=== PATIENT | male | born 1940 | race Caucasian/White ===

== ENCOUNTER 2017-10-02 06:11 | Emergency (ER) | payer MEDICARE, OTHER ==
[2017-10-02] MEDS ORDERED: HYDROcodone/Acetaminophen 10/325 mg Tablet ONE ×2 (07:05→12:04)
--- NOTE | 2017-10-02 09:43 | CT ---
CT OF HEAD NONCONTRAST: Date: 10/02/17 INDICATION: Trauma, head injury, pain. FINDINGS: There is no intracranial hemorrhage, mass effect, or midline shift. Ventricular system is age-appropr iate in size. There is mild chronic microvascular ischemic disease of the cerebral white matter. Mini mal mucosal thickening is seen within paranasal sinuses. IMPRESSION: 1. No acute intracranial hemorrhage or mass effect. 2. Age-related intracranial findings are present. POS: [facility]
--- NOTE | 2017-10-02 11:54 | CT ---
CERVICAL SPINE CT WITHOUT CONTRAST: Date: 10/02/17 HISTORY: Fall. Trauma. COMPARISON: 10/02/17 at 0037 hours from [facility]. FINDINGS/IMPRESSION: Redemonstration of a fracture involving the left spinous process at C4 with extension into the news clerk ior left lamina. No additional fracture is seen. There has been no changed when compared to the previ ous CT. Nonspecific pleural based calcification right hemithorax. Correlate for asbestos exposure. POS: [facility]
--- NOTE | 2017-10-03 06:00 | HP ---
This is a 30-minute initial hospital visit note in which 30 minutes were spent in review of the imagi ng record, evaluation, examination of the patient, and formulation of plan. Greater than 50% of the time was spent in counseling. CHIEF COMPLAINT: C4 spinous process fracture. HISTORY OF PRESENT ILLNESS: Mr. Smith is a very pleasant 77-year-old gentleman who sustained a fall with an axial load injury. He is on antiplatelet therapy. He was transferred here, given concern of a cervical spine fracture. Review of his craniocervical imaging demonstrates no acute abnormality w ith the exception of a C4 spinous process and somewhat eccentric to the left with extension into the spinolaminar region fracture. There is no other acute abnormality. He has been neurologically intac t and he is in a well-fitting cervical collar in the emergency room. PHYSICAL EXAMINATION: He is alert, appropriate, has full strength in his upper and lower extremity m yotomes. He is neurologically intact. He is limited in his left shoulder motion as he likely sustai radha a rotator cuff injury with this. IMPRESSION AND PLAN: What I have let the patient and his family know is I would like him to stay in a collar. We will arrange followup in the clinic with upright AP and lateral cervical spine x-rays i n 6 weeks. Should his imaging and clinical presentation be satisfactory in 6 weeks. I think we can begin tapering him out of his collar at that point. I have let him know I would like him to stay in his collar at all times with the exception of perhaps when he is bathing or showering. He may take i t off as long as he maintains cervical spine neutral position. I have let him know that I would like him not to lift more than 10 pounds for the next 6 weeks. We will arrange followup in my clinic. I have also counseled him on beneficial exercises to help minimize rotator cuff problems associated wi th his shoulder. I do not think that is left shoulder pain is due to radiculopathy at this point. _ ____ C4 fracture.
== END 2017-10-02 12:15 | disposition home or self-care (01) ==
LOC: ERS 06:11
DX: S12.300A Unspecified displaced fracture of fourth cervical vertebra, initial encounter for closed fracture (principal); I25.10 Atherosclerotic heart disease of native coronary artery without angina pectoris; I11.0 Hypertensive heart disease with heart failure; I50.9 Heart failure, unspecified; E78.5 Hyperlipidemia, unspecified; Z79.82 Long term (current) use of aspirin; Z79.899 Other long term (current) drug therapy; W18.30XA Fall on same level, unspecified, initial encounter
CPT/HCPCS: 36416; 70450; 72125

== ENCOUNTER 2017-10-31 10:28 | Outpatient (CLI) | payer MEDICARE ==
--- NOTE | 2017-10-31 12:16 | RAD ---
FOUR VIEWS CERVICAL SPINE: Indication: History of fall with a C4 vertebral fracture. Comparison: CT of the cervical spine, 10-02-17. FINDINGS: Spinal alignment is unchanged. Bulky anterior projecting osteophytes spanning C3 through C6 appears s imilar. Nondisplaced spinus process fracture involving C4 is not as well delineated on the current ex amination. Diffuse osteopenia is similar. Cervicothoracic junction is not well seen on the swimmer's lateral projection. IMPRESSION: 1. Patient's C4 spinous process fracture is not well seen. 2. Moderate multiple spondylosis of the cervical spine. 3. Nonvisualization of the cervicothoracic junction. POS: [facility]
== END 2017-10-31 10:29 | disposition home or self-care (01) ==
LOC: TBSIIMAG 10:28
PROVIDERS: ATTEND Surgery
DX: S12.9XXA Fracture of neck, unspecified, initial encounter (principal); M47.892 Other spondylosis, cervical region
CPT/HCPCS: 72040

== ENCOUNTER 2018-09-11 12:20 | Outpatient (CLI) | payer MEDICARE ==
--- NOTE | 2018-09-11 15:51 | RAD ---
THREE VIEWS LUMBAR SPINE: History: Back pain radiating down both lower extremities x 3-4 months. Comparison: None. FINDINGS: Incidental gastric lap band is noted and cannot be assessed. There are five lumbar type vertebral bodies. Extensive osteophyte formation of the lumbar spine. In t he neutral upright position, there is straightening of the normal lumbar lordosis. Vertebral body hei ght is maintained. There is no fracture. Moderate loss of disc space height at L3-4. In the neutral position, 5.4 mm of retrolisthesis of L4 upon L5, on flexion 3.0 mm, upon extension 4. 4 mm. No additional areas of spondylolisthesis. There are degenerative changes in the posterior elements of L4-5 and L5-S1. IMPRESSION: Degenerative changes of spondylolisthesis as above. POS: [facility]
--- NOTE | 2018-09-11 18:26 | MRI ---
MRI CERVICAL SPINE WITHOUT CONTRAST: Date: 09/11/18 HISTORY: Balance problems. Frequent falls. Neck pain. COMPARISON: None. TECHNIQUE: Cervical spine MRI is performed without intravenous Gadolinium administration. Multisequential, multi planar imaging is performed. FINDINGS: Appropriate T1 marrow signal intensity of the cervical vertebra. Cervical spine vertebral body height is maintained. No fracture. No significant STIR hyperintensity to suggest vertebral body edema or li gamentous injury. C2-C3: No significant disc osteophyte complex. No significant central canal stenosis. Neural foramin a are patent. C3-C4: Small central disc osteophyte complex superimposed upon a broad based disc bulge. There is de formity of the cervical spine with at least moderate central canal stenosis. No significant abnormali ty of the cord. Moderate bilateral foraminal narrowing. C4-C5: Central/left subarticular disc protrusion. There is deformity of the left hemicord with presu med mass effect upon the traversing left C6 nerve root. Overall mild to moderate central canal stenos is in the left aspect of the central spinal canal. Moderate right and moderate to severe left foramin al narrowing. C5-C6: There is a central disc bulge with a small right paracentral component. There is deformity of the thecal sac and mass effect upon the cervical cord. Moderate central canal stenosis. Moderate john ateral foraminal narrowing. C6-C7: No significant central canal stenosis. Neural foramina are patent. C7-T1: No significant central canal stenosis. Foramina are patent. IMPRESSION: Degenerative changes of the cervical spine at C3-C4, C4-C5, and C5-C7 as described above. POS: [facility]
== END 2018-09-11 12:21 | disposition home or self-care (01) ==
LOC: SCSMRI 12:20
PROVIDERS: ATTEND Surgery
DX: M51.16 Intervertebral disc disorders with radiculopathy, lumbar region (principal); R26.89 Other abnormalities of gait and mobility; R29.6 Repeated falls; M47.26 Other spondylosis with radiculopathy, lumbar region; M43.16 Spondylolisthesis, lumbar region; M47.812 Spondylosis without myelopathy or radiculopathy, cervical region
CPT/HCPCS: 72120; 72141

== ENCOUNTER 2018-09-22 12:52 | Outpatient (CLI) | payer MEDICARE | END 2018-09-22 12:53 | disposition home or self-care (01) | LOC: TBSIIMAG 12:52 | PROVIDERS: ATTEND Surgery | DX: M51.16 Intervertebral disc disorders with radiculopathy, lumbar region (principal); R26.89 Other abnormalities of gait and mobility; R29.6 Repeated falls; M47.26 Other spondylosis with radiculopathy, lumbar region; M47.27 Other spondylosis with radiculopathy, lumbosacral region; M43.16 Spondylolisthesis, lumbar region; M48.061 Spinal stenosis, lumbar region without neurogenic claudication; M47.812 Spondylosis without myelopathy or radiculopathy, cervical region; Z98.890 Other specified postprocedural states | CPT/HCPCS: 72148 ==

== ENCOUNTER 2018-10-10 11:45 | Day surgery (SDC) | payer MEDICARE ==
[2018-10-09 16:04] VITALS: BMI 37.5
== END 2018-10-10 13:00 | disposition home or self-care (01) ==
LOC: SDC/OP 11:45
PROVIDERS: ATTEND Surgery
DX: M54.5 Low back pain (principal); M25.552 Pain in left hip; M25.551 Pain in right hip; M79.18 Myalgia, other site; M79.652 Pain in left thigh; M79.651 Pain in right thigh; R26.89 Other abnormalities of gait and mobility; Z91.81 History of falling; Z79.02 Long term (current) use of antithrombotics/antiplatelets; Z79.4 Long term (current) use of insulin; Z79.82 Long term (current) use of aspirin; Z79.899 Other long term (current) drug therapy; Z91.041 Radiographic dye allergy status; Z95.5 Presence of coronary angioplasty implant and graft; Z98.890 Other specified postprocedural states

== ENCOUNTER 2018-10-13 11:59 | Day surgery (SDC) | payer MEDICARE ==
[2018-10-12 14:24] VITALS: BMI 37.8
[2018-10-13] MEDS ORDERED: Fentanyl 100 MCG/2 ML VIAL ONE (14:51)
[2018-10-13] MEDS ORDERED: Ketorolac Tromethamine 30 MG/ML VIAL ONE (15:42)
[2018-10-13] MEDS ORDERED: PROPOFOL 200 MG/20 ML VIAL ONE (15:42)
[2018-10-13] MEDS ORDERED: Ondansetron PF 4 MG/2 ML Vial ONE (15:42)
[2018-10-13] MEDS ORDERED: Lidocaine 1% PF 5 ML VIAL ONE (15:42)
--- NOTE | 2018-10-13 16:29 | MRI ---
MRI THORACIC SPINE WITHOUT CONTRAST: 10/13/18 HISTORY: Recent fall. Chronic low back pain. Gait abnormality. COMPARISON: None. TECHNIQUE: Thoracic spine MRI is performed without intravenous gadolinium administration. Multisequential, multi planar imaging is performed. FINDINGS: Appropriate T1 marrow signal intensity of the thoracic vertebrae. Thoracic spine vertebral body heigh t is maintained. There is no fracture. The visualized mediastinum is unremarkable. Atelectatic changes in the lung parenchyma is suspected. Visualized solid organs are unremarkable. The thoracic cord has an overall normal size and signal intensity. No evidence of cord malacia. No ev idence of cord expansion. There is nonspecific T2 and STIR hyperintensity involving the T8-T9 disc space. There appears to be t ype II Modic changes on the superior end plate of T9. T1-T2 through T5-T6, no significant central canal stenosis. T6-T7, small central disc bulge deforms the thecal sac and midline cord. No cord signal abnormality. T7-T8, minimal right paracentral disc protrusion. No significant central canal stenosis. T8-T9, there is a central disc osteophyte complex that abuts the thecal sac. There is deformity of th e midline thecal sac and cord. No signal abnormality in the cord. Mild central canal stenosis. T9-T10, no significant central canal stenosis. T10-T11, small central disc protrusion without significant central canal stenosis. T11-T12, no significant central canal stenosis. Throughout the thoracic spine, neural foramina appear to be patent. IMPRESSION: Mild degenerative changes without significant central canal stenosis or foraminal narrowing. POS: [facility]
== END 2018-10-13 18:08 | disposition home or self-care (01) ==
LOC: MRI 11:59
PROVIDERS: ATTEND Surgery
DX: G89.29 Other chronic pain (principal); M54.5 Low back pain; R26.89 Other abnormalities of gait and mobility; M51.24 Other intervertebral disc displacement, thoracic region; M48.04 Spinal stenosis, thoracic region; Z79.02 Long term (current) use of antithrombotics/antiplatelets; Z79.4 Long term (current) use of insulin; Z79.82 Long term (current) use of aspirin; Z79.899 Other long term (current) drug therapy; Z91.041 Radiographic dye allergy status; Z95.1 Presence of aortocoronary bypass graft; Z95.5 Presence of coronary angioplasty implant and graft; Z98.890 Other specified postprocedural states
CPT/HCPCS: 72146; J1885; J2001; J2405; J2704; J3010

== ENCOUNTER 2018-12-14 00:51 | Outpatient (CLI) | payer MEDICARE ==
[2018-12-14 13:45] LABS: Hemoglobin 11.6 g/dL (14.0-18.0); Mean Corpuscular HGB CONC 33.3 g/dL (32.0-36.0); Mean Corpuscular Hemoglobin 32.4 pg (27.0-31.0); Mean Corpuscular Volume 97.2 fL (78.0-98.0); Mean Platelet Volume 6.9 fL (7.4-10.4); Platelet Count 163 thou/uL (130-400); RBC Distribution Width 13.7 % (11.5-14.5); Red Blood Cell (RBC) Count 3.59 mill/uL (4.70-6.10); White Blood Cell (WBC) Count 10.5 thou/uL (4.8-10.8)
[2018-12-14 13:54] LABS: PTT 31.7 SEC (22.9-36.1); Prothrombin Time 13.4 SEC (12.0-14.7)
[2018-12-14 14:04] LABS: Anion Gap 16 mmol/L (10-20); BUN (Urea Nitrogen) 33 mg/dL (8.4-25.7); Calc. Creatinine Clearance 0 mL/min (70-130); Calcium 9.9 mg/dL (7.8-10.44); Carbon Dioxide 25 mmol/L (23-31); Chloride 102 mmol/L (98-107); Estimated GFR-MDRD 46; Glucose 158 mg/dL (83-110); Potassium 4.2 mmol/L (3.5-5.1); Sodium 139 mmol/L (136-145)
--- NOTE | 2018-12-15 07:09 | EKG ---
Test Reason : Blood Pressure : / mmHG Vent. Rate : 077 BPM Atrial Rate : 077 BPM P-R Int : 186 ms QRS Dur : 138 ms QT Int : 426 ms P-R-T Axes : 033 -67 040 degrees QTc Int : 482 ms Normal sinus rhythm with sinus arrhythmia Right bundle branch block Left anterior fascicular block Bifascicular block Left ventricular hypertrophy with QRS widening Abnormal ECG When compared with ECG of 13-JAN-2010 07:39, Premature atrial complexes are no longer Present Right bundle branch block has replaced Incomplete right bundle branch block Confirmed by CINDA DE LEON ([id number]) on 12/15/2018 7:09:36 AM Referred By: ROXI Confirmed By:CINDA DE LEON
== END 2018-12-14 00:52 | disposition home or self-care (01) ==
LOC: LABBT 00:51
PROVIDERS: ATTEND Surgery
DX: Z01.818 Encounter for other preprocedural examination (principal); M48.02 Spinal stenosis, cervical region; M54.12 Radiculopathy, cervical region
CPT/HCPCS: 80048; 85027; 85610; 85730; 93005; 93010

== ENCOUNTER 2018-12-21 09:59 | Observation (INO) | payer MEDICARE ==
[2018-12-14 12:39] VITALS: BMI 37.5
[2018-12-21] MEDS ORDERED: Sodium Chloride 0.9% 10 ML ONE (10:02)
[2018-12-21] MEDS ORDERED: Thrombin 5000 UNITS/5 ML VIAL ONE (10:02)
[2018-12-21] MEDS ORDERED: Fentanyl 100 MCG/2 ML VIAL ONE ×3 (11:00→14:48)
[2018-12-21] MEDS ORDERED: PHENYLEPHRINE-NS 100 MCG/ML 10 ML SYRINGE ONE ×2 (13:11→13:48)
[2018-12-21] MEDS ORDERED: Lidocaine 1% PF 5 ML VIAL ONE (13:48)
[2018-12-21] MEDS ORDERED: Rocuronium Bromide 10 MG/ML (10ML VIAL) ONE (13:48)
[2018-12-21] MEDS ORDERED: PROPOFOL 200 MG/20 ML VIAL ONE (13:48)
[2018-12-21] MEDS ORDERED: Ondansetron PF 4 MG/2 ML Vial ONE (13:48)
[2018-12-21] MEDS ORDERED: Promethazine HCl 25 MG/ML VIAL IM PRN (14:40)
[2018-12-21] MEDS ORDERED: Milk Of Magnesia 30 ML UDCUP PO PRN (14:40)
[2018-12-21] MEDS ORDERED: Acetaminophen/Codeine 30-300mg Tablet PO PRN (14:40)
[2018-12-21] MEDS ORDERED: Mag-Al 1200 mg/1200 mg/30 ML UDCUP PO PRN (14:40)
[2018-12-21] MEDS ORDERED: traMADol HCl 50 MG TAB PO PRN (14:40)
[2018-12-21] MEDS ORDERED: Morphine 4 MG/ML VIAL SLOW IVP PRN (14:40)
[2018-12-21] MEDS ORDERED: Bisacodyl 10 MG SUPP PR PRN (14:40)
[2018-12-21] MEDS ORDERED: Acetaminophen 325 MG TAB PO PRN (14:40)
[2018-12-21] MEDS ORDERED: Fleet Enema 133 ML BOT PR PRN (14:40)
[2018-12-21] MEDS ORDERED: Nitroglycerin 0.4 MG TAB (25 Tab Bottle) SL PRN (14:43)
[2018-12-21] MEDS ORDERED: HYDROmorphone 2 MG/ML VIAL ONE (14:49)
[2018-12-21] MEDS ORDERED: INSULIN ASPART 15 UNIT SQ SCH (15:00)
[2018-12-21] MEDS ORDERED: Promethazine HCl 25 MG/ML VIAL IM/IV PRN (15:51)
[2018-12-21] MEDS ORDERED: HYDROmorphone 2 MG/ML VIAL SLOW IVP PRN (15:51)
[2018-12-21] MEDS ORDERED: Non-Formulary Medication 1 EACH PO PRN (15:51)
[2018-12-21] MEDS ORDERED: Ondansetron HCl/PF 4 MG/2 ML Vial IVP PRN (15:51)
[2018-12-21] MEDS: Gabapentin 300 MG CAP PO SCH ×2 (16:46→20:55)
[2018-12-21] MEDS: HYDROcodone/Acetaminophen 7.5/325 mg Tablet PO PRN ×2 (17:21→21:07)
[2018-12-21] MEDS: Sodium Chloride 0.9% 1,000 ML IV SCH (17:23)
[2018-12-21] MEDS: tiZANidine HCl 4 MG TAB PO PRN (18:31)
[2018-12-21] MEDS ORDERED: Zolpidem Tartrate 5 MG TAB PO PRN (20:20)
[2018-12-21] MEDS ORDERED: Dextrose 50% Abboject 50 ML SYRINGE SLOW IVP PRN (20:21)
[2018-12-21] MEDS ORDERED: Dextrose 5% in Water 1,000 ML IV PRN (20:21)
[2018-12-21] MEDS: CEFAZOLIN 2 GM in Premix Bag 1 BAG IVPB SCH (20:54)
[2018-12-21] MEDS: Dutasteride 0.5 MG CAP PO SCH (20:55)
[2018-12-21] MEDS: Atorvastatin Calcium 10 MG TAB PO SCH (20:55)
[2018-12-21] MEDS ORDERED: INSULIN GLARGINE HUM REC ANLOG SQ SCH (21:00)
[2018-12-21] MEDS ORDERED: [UNRECOGNIZED DRUG - OTHER] SQ SCH (21:00)
[2018-12-21] MEDS: HumaLOG 300 UNITS/3 ML VIAL SC SCH (21:32)
[2018-12-21] MEDS: Insulin Glargine 22 UNITS in Pre-Filled Syringe 1 EACH SC SCH (21:57)
[2018-12-22] MEDS: tiZANidine HCl 4 MG TAB PO PRN ×3 (01:28→18:47)
--- NOTE | 2018-12-22 02:49 | CON ---
DATE OF CONSULTATION: PRIMARY CARE PHYSICIAN: Judy Rousseau at [facility]. PRIMARY TEAM: Neurosurgery, Dr. Romano. REASON FOR CONSULTATION: Medical management. HISTORY OF PRESENT ILLNESS: This is an 78-year-old white male, admitted for scheduled cervical spine anterior cervical disk fusion. The patient had procedure done earlier today. He has been doing well postoperatively. He does have some pain in the muscles around his neck. PAST MEDICAL HISTORY: 1. Diabetes mellitus type 2, insulin dependent, complicated by stage 3 chronic kidney disease and diabetic retinopathy. 2. Coronary artery disease with previous CABG and further stenting. 3. Diastolic congestive heart failure. 4. Dyslipidemia. 5. Arthritis and rotator cuff injury of the shoulder. 6. Morbid obesity. 7. Gastroesophageal reflux disease. 8. Chronic low back pain. 9. Mild aortic stenosis. 10. Remote nephrolithiasis. 11. Hypertension. PAST SURGICAL HISTORY: 1. Coronary artery bypass grafting in 2006. 2. Cataract surgery in 2005. 3. Tonsillectomy in 1954. 4. Vasectomy in 1962. 5. Patellar fracture surgery in 1957. 6. Hemorrhoid surgery in 1975. 7. Ureteroscopy multiple times. 8. Lumbar spinal surgery in 1998. 9. Transurethral resection of the prostate in 1995. 10. Bilateral foot surgery in 2011. 11. Laparoscopic gastric banding in 2009. 12. Thyroidectomy in 2009. 13. Right total knee replaced in 2005. SOCIAL HISTORY: The patient has no significant smoking history. No alcohol or illicit drug use. He lives at home with his who is present at the bedside and she would be his medical decisionmaker, name Yue Smith. FAMILY HISTORY: Cancer in his brother, father and sister. ALLERGIES: 1. JAME INHIBITORS. 2. ADHESIVE TAPE. 3. IODINATED CONTRAST. 4. SILDENAFIL. CURRENT MEDICATIONS: 1. Aspirin 81 mg daily. 2. Plavix 75 mg daily. 3. Colace as needed. 4. Hydrocodone/acetaminophen 5/325 mg as needed for pain. 5. Resveratrol 100 mg daily. 6. Allopurinol 300 mg daily. 7. Dutasteride 0.5 mg at night. 8. Furosemide 160 mg each morning. 9. Gabapentin 300 mg 3 times a day. 10. Hydrochlorothiazide 12.5 mg each morning. 11. NovoLog 15 units before every meal. 12. Basaglar KwikPen 20 units q.a.m. and at bedtime. 13. Levothyroxine 200 mcg each morning. 14. Losartan 100 mg each morning. 15. Metoprolol-XL 50 mg at night. 16. Nitroglycerin as needed. 17. Omeprazole 40 mg twice a day. 18. Pravastatin 40 mg at night. REVIEW OF SYSTEMS: CONSTITUTIONAL: No fevers, no chills. EYES: No double vision or blurred vision. ENT: No congestion, drainage, or sore throat. The patient does have very dry mouth and throat and he also has had a problem for years ever since previous surgery that when he swallows if he is not careful, things will shoot up into his nose. This is always worse right after surgery as right now, but he has been able to swallow some liquids and ice chips just very carefully. CARDIOVASCULAR: No chest pain. No palpitations or racing heart. PULMONARY: No coughing, wheezing, or shortness of breath. GASTROINTESTINAL: No abdominal pain. No nausea or vomiting. No diarrhea or constipation. GENITOURINARY: No dysuria or hematuria. MUSCULOSKELETAL: He has chronic muscle aches and joint pains, but nothing that is bothering him right now, just the pain in his neck from the surgery. SKIN: No rashes or other lesions noted. NEUROLOGIC: No numbness, tingling, or focal weakness. LABORATORY DATA: Preoperative labs show a white blood cell count of 10.5, hemoglobin 11.6, hematocrit 34.9, and platelet count 163. Coagulation profile normal. Basic metabolic panel which is notable for a BUN of 33 and creatinine of 1.54. His glucose was 231 and then 195 during the day today. Last insulin was 2/3 the dose of his long-acting insulin last night. ASSESSMENT: 1. Cervical spine disease, status post diskectomy and fusion. The patient is doing well postoperatively. 2. Insulin-dependent diabetes mellitus. We will resume the patient's home insulin and put him on a moderate sliding scale before every meal and at bedtime blood sugars. 3. Coronary artery disease. Holding the patient's aspirin and Plavix for now. We will hold those until Neurosurgery is okay with restarting likely in 1-2 weeks and continue his other home medications. 4. Hypertension. We will resume the patient's home blood pressure medications. 5. Chronic renal failure, stage 3. We will monitor creatinine closely. 6. Gastrointestinal prophylaxis and history of gastroesophageal reflux disease. We will continue the patient's PPI in the hospital. 7. Deep venous thrombosis prophylaxis. We will put the patient on SCDs while in bed. 8. Hypothyroidism. We will resume the patient's levothyroxine. 9. Code status, the patient is a full code. Job ID: [id number] MTDD
[2018-12-22] MEDS: CEFAZOLIN 2 GM in Premix Bag 1 BAG IVPB SCH ×3 (03:20→20:57)
[2018-12-22] MEDS: Sodium Chloride 0.9% 1,000 ML IV SCH ×3 (04:43→21:03)
[2018-12-22] MEDS: Levothyroxine Sodium 100 MCG TAB PO SCH (05:35)
[2018-12-22] MEDS: HumaLOG 300 UNITS/3 ML VIAL SC SCH ×3 (07:29→13:13)
[2018-12-22] MEDS: Losartan 25 MG TAB PO SCH (09:29)
[2018-12-22] MEDS: Hydrochlorothiazide 25 MG TAB PO SCH (09:29)
[2018-12-22] MEDS: Gabapentin 300 MG CAP PO SCH ×3 (09:30→20:58)
[2018-12-22] MEDS: Allopurinol 300 MG TAB PO SCH (09:30)
[2018-12-22] MEDS: Furosemide 80 MG TAB PO SCH (09:31)
[2018-12-22] MEDS: HYDROcodone/Acetaminophen 7.5/325 mg Tablet PO PRN ×2 (09:32→15:58)
--- NOTE | 2018-12-22 09:53 | OP ---
DATE OF PROCEDURE: 12/21/2018 METERS SUPERINTENDENT: Durga Villalobos PA-C PREPROCEDURE DIAGNOSES: Cervical myelopathy with neck and arm pain with severe cervical stenosis. POSTPROCEDURE DIAGNOSES: Cervical myelopathy with neck and arm pain with severe cervical stenosis. PROCEDURES PERFORMED: 1. Anterior C4-C5 and C5-C6 diskectomies with decompression of spinal cord in C5-C6 nerve roots. 2. Placement of interbody spacer C4-C5 and C5-C6 for arthrodesis packed with graft C4-C5 and C5-C6. 3. Use of operative microscope for microdissection. 4. Anterior cervical plate and screw fixation, C4, C5, C6. DESCRIPTION OF PROCEDURE: After informed consent was obtained from the patient, the patient was brought to the OR. Proper patient, pause, and identification were carried out. Right anterior oblique james was drawn out and this region was sterilely cleansed, prepared, and draped. Proper patient, pause, and identification were carried out. The wound was then opened with a combination of sharp, monopolar, and blunt dissection, and proceeding lateral to the larynx, pharynx, and tracheoesophageal bundle and medial to the right carotid sheath. We identified the prevertebral layer of deep cervical fascia and longus colli muscles. These were swept laterally. He had significant osteophyte bridging across his bones obscuring the disk space and localization was somewhat difficult but we were able to identify the appropriate segments. Distraction then occurred and the microscope was brought in. Diskectomy was performed with excellent decompression of the C4-C5 segment in particular the C4-C5 portion of the cord and C5 nerve roots. We then placed an interbody spacer packed with graft and distraction was released. We did the same procedure at C5-C6 with diskectomy, decompression of spinal cord, and C6 nerve roots in particular the right C6 nerve roots, which were quite compressed and we had excellent decompression. Copious irrigation occurred throughout as did maximizing hemostasis. Then removed the microscope. Anterior cervical plate and screw fixation from C4-C6 then occurred with final tightening and the wound was copiously irrigated and closed in anatomic layers over drain. Job ID: [id number]
--- NOTE | 2018-12-22 15:08 | PRG ---
DATE OF SERVICE: 12/22/2018 POSTOPERATIVE NOTE: Mr. Smith is postoperative day #1, having undergone ACDF. DESIREE drain put out 25 mL since surgery. He has had some sore throat, but has been able to get out of bed to a commode. He states he has posterior neck pain and continued right shoulder and lateral arm pain. Now states he believes that this is improved postoperatively. He is also scheduled for rotator cuff repair on the right in March. Otherwise, the patient would benefit from another overnight stay for continued pain control and increase mobilization. We have consulted inpatient rehab as well as therapies to see if the patient would need rehab versus home health. Otherwise, we will check back on him in the morning. We will continue Ancef. He will remain with the DESIREE drain. Job ID: [id number]
[2018-12-22] MEDS ORDERED: Insulin Regular 300 UNITS/3 ML VIAL SC PRN (16:25)
[2018-12-22] MEDS: Insulin Glargine 22 UNITS in Pre-Filled Syringe 1 EACH SC SCH ×2 (16:33→21:45)
[2018-12-22] MEDS: Atorvastatin Calcium 10 MG TAB PO SCH (20:58)
[2018-12-22] MEDS: Dutasteride 0.5 MG CAP PO SCH (20:58)
[2018-12-23] MEDS: tiZANidine HCl 4 MG TAB PO PRN ×3 (01:29→20:29)
[2018-12-23] MEDS: HYDROcodone/Acetaminophen 7.5/325 mg Tablet PO PRN ×4 (01:29→18:42)
[2018-12-23] MEDS: CEFAZOLIN 2 GM in Premix Bag 1 BAG IVPB SCH (04:40)
[2018-12-23] MEDS: Levothyroxine Sodium 100 MCG TAB PO SCH (05:16)
[2018-12-23] MEDS: Losartan 25 MG TAB PO SCH (10:08)
[2018-12-23] MEDS: Hydrochlorothiazide 25 MG TAB PO SCH (10:09)
[2018-12-23] MEDS: Furosemide 80 MG TAB PO SCH (10:09)
[2018-12-23] MEDS: Insulin Glargine 22 UNITS in Pre-Filled Syringe 1 EACH SC SCH ×2 (10:10→20:28)
[2018-12-23] MEDS: Allopurinol 300 MG TAB PO SCH (10:10)
[2018-12-23] MEDS: Gabapentin 300 MG CAP PO SCH ×3 (10:10→20:29)
--- NOTE | 2018-12-23 11:50 | PRG ---
DATE OF SERVICE: 12/23/2018 Mr. Smith is postoperative day 2 from C4-C6 ACDF. His drain output has been 20 mL over the last 24 hours. We will remove his drain. He has mild dysphagia, not surprising given the size of his neck and his age. He does have right upper extremity edema and he may have an infiltration of his right peripheral IV. We will get an ultrasound of the right arm. He does not yet know if his hand coordination is improved, but he does have improvement in his right upper extremity pain that he had before surgery. His wound is healing well. We will work on mobilization today. Anticipate dismissal tomorrow. Job ID: [id number]
[2018-12-23] MEDS: Insulin Regular 300 UNITS/3 ML VIAL SC PRN ×2 (13:00→17:21)
--- NOTE | 2018-12-23 14:23 | ULT ---
VENOUS DUPLEX SONOGRAM RIGHT UPPER EXTREMITY: Date: 12/23/18 HISTORY: Right arm pain and edema. Neck brace in place. FINDINGS: Internal jugular vein and upper portion of the subclavian vein is difficult to visualize due to neck brace. The brachial, axillary, cephalic, and basilic veins show good color and spectral Doppler flow and compression. IMPRESSION: No sonographic evidence of deep venous thrombosis within the right upper extremity. POS: [facility]
--- NOTE | 2018-12-23 19:52 | PDOC.PN ---
- Subjective Encounter Start Date: 12/23/18 Encounter Start Time: 12:30 Patient seen and examined for med mngt. Pain controlled. No CP/SOB. No new complaints. No overnight events - Objective MAR Reviewed: Yes Vital Signs & Weight: Vital Signs (12 hours) Temp Pulse Resp BP Pulse Ox 12/23/18 15:20 98.3 F 73 16 107/64 93 L 12/23/18 11:45 98.5 F 83 14 123/68 95 12/23/18 08:00 98.3 F 82 12 147/70 H 93 L Weight Weight 285 lb I&O: 12/22/18 12/23/18 12/24/18 06:59 06:59 06:59 Intake Total 1025 2230 740 Output Total 450 620 850 Balance 575 1610 -110 Additional Labs: Accuchecks 12/23/18 12/23/18 12/23/18 15:22 11:36 06:20 POC Glucose 206 H 223 H 191 H 12/22/18 21:38 POC Glucose 283 H Phys Exam - Physical Examination Constitutional: NAD Respiratory: no wheezing, no rhonchi Cardiovascular: RRR, no rub Gastrointestinal: soft, positive bowel sounds Musculoskeletal: pulses present RUE swelling Dx/Plan - Plan DVT proph w/SCDs 1. DM2 2 HTN 3. Obesity BMI 37.6 4. CAD s/p Stent 5. HLD 6. CKD 3 7. Hypothyroidism PLAN: Cont current dose of Lantus with aggressive sliding scale Cont current home meds including Lasix AM labs Will follow Review of Systems - Review of Systems Respiratory: negative: Cough, Dry, Shortness of Breath, Hemoptysis, SOB with Excertion, Pleuritic Pain, Sputum, Wheezing Cardiovascular: negative: chest pain, palpitations, orthopnea, paroxysmal nocturnal dyspnea, edema, light headedness, other - Medications/Allergies Allergies/Adverse Reactions: Allergies Allergy/AdvReac Type Severity Reaction Status Date / Time JAME Inhibitors Allergy Verified 12/14/18 12:41 adhesive tape Allergy Rash Verified 12/14/18 12:41 Iodinated Contrast- Oral and Allergy itching Verified 10/12/18 14:24 IV Dye sildenafil Allergy Verified 12/14/18 12:41 Medications: Current Medications Acetaminophen (Tylenol) 650 mg PO Q4H PRN PRN Reason: RAYMUNDO/Fever Or Mild Pain (1-3) Acetaminophen/Codeine Phosphate (Tylenol #3) 1 tab PO Q3H PRN PRN Reason: Mild Pain (1-3) Hydrocodone Bitart/Acetaminophen ([place] 7.5/325) 1 tab PO Q4H PRN PRN Reason: Moderate Pain (4-6) Last Admin: 12/23/18 18:42 Dose: 1 tab Al Hydroxide/Mg Hydroxide (Maalox) 30 ml PO Q4H PRN PRN Reason: Indigestion [facility]urin[facility] ([facility]oprim) [facility] Last Admin: 12/23/18 10:10 Dose: 300 mg Atorvastatin Calcium (Lipitor) 10 mg PO [facility] Last Admin: 12/22/18 20:58 Dose: 10 mg Bisacodyl (Dulcolax) 10 mg [place] Q12H PRN PRN Reason: Constipation Dextrose/Water (Dextrose 50%) 25 gm SLOW IVP PRN PRN PRN Reason: Hypoglycemia Dutasteride (Avodart) 0.5 mg PO [facility] Last Admin: 12/22/18 20:58 Dose: 0.5 mg Furosemide (Lasix) 160 mg PO [facility] Last Admin: 12/23/18 10:09 Dose: 160 mg Gabapentin (Neurontin) 300 mg PO TID [facility] Last Admin: 12/23/18 14:19 Dose: 300 mg Glucagon (Glucagon) 1 mg IM PRN PRN PRN Reason: Hypoglycemia Hydrochlorothiazide (Hydrochlorothiazide) 12.5 mg PO [facility] Last Admin: 12/23/18 10:09 Dose: 12.5 mg Insulin Glargine 22 units/ (Miscellaneous Medication) 0.22 mls @ 0 mls/hr SC BID [facility] Last Admin: 12/23/18 10:10 Dose: 0.22 mls Dextrose/Water (D5w) 1,000 mls @ 0 mls/hr IV .Q0M PRN PRN Reason: Hypoglycemia Insulin Human Regular (Humulin R) 0 units SC .MODERATE SLIDING SC PRN PRN Reason: Moderate Correctional Scale Last Admin: 12/23/18 17:21 Dose: 4 unit Insulin Human Regular (Humulin R) 0 units SC .BEDTIME SLIDING SC PRN PRN Reason: Bedtime Correctional Scale Last Admin: 12/22/18 21:44 Dose: 3 unit Levothyroxine Sodium (Synthroid) 200 mcg PO 0600 [facility] Last Admin: 12/23/18 05:16 Dose: 200 mcg Losartan Potassium (Cozaar) 100 mg PO QAM [facility] Last Admin: 12/23/18 10:08 Dose: 100 mg Magnesium Hydroxide (Milk Of Magnesium) 30 ml PO Q12H PRN PRN Reason: Constipation Metoprolol Succinate (Toprol Xl) 50 mg PO HS [facility] Last Admin: 12/22/18 20:58 Dose: 50 mg Morphine Sulfate (Morphine) 2 mg SLOW IVP Q1H PRN PRN Reason: Severe Pain (7-10) Nitroglycerin (Nitrostat) 0.4 mg SL PRN PRN PRN Reason: Chest Pain Pantoprazole Sodium (Protonix) 40 mg PO BID [facility] Last Admin: 12/23/18 10:10 Dose: 40 mg Promethazine HCl (Phenergan) 12.5 mg IM Q4H PRN PRN Reason: Nausea/Vomiting Sodium Biphosphate/Sodium Phosphate (Fleet Enema) 133 ml [place] ONE PRN PRN Reason: Constipation Stop: 12/24/18 14:41 Sodium Chloride (Flush - Normal Saline) 10 ml IVF PRN PRN PRN Reason: Saline Flush Tizanidine HCl (Zanaflex) 4 mg PO Q6H PRN PRN Reason: Muscle Spasm Last Admin: 12/23/18 13:00 Dose: 4 mg Tramadol HCl (Ultram) 50 mg PO Q6H PRN PRN Reason: Mild Pain (1-3) Last Admin: 12/22/18 01:28 Dose: 50 mg Zolpidem Tartrate (Ambien) 5 mg PO HSPRN PRN PRN Reason: Insomnia Last Admin: 12/21/18 21:07 Dose: 5 mg
[2018-12-23] MEDS: Dutasteride 0.5 MG CAP PO SCH (20:30)
[2018-12-23] MEDS: Atorvastatin Calcium 10 MG TAB PO SCH (20:30)
[2018-12-24] MEDS: HYDROcodone/Acetaminophen 7.5/325 mg Tablet PO PRN ×3 (00:02→10:16)
[2018-12-24] MEDS: Levothyroxine Sodium 100 MCG TAB PO SCH (05:27)
[2018-12-24 07:08] LABS: #Eosinphils 0.2 thou/uL (0.0-0.7); #Lymphocytes 1.2 thou/uL (1.20-3.40); #Monocytes 0.6 thou/uL (0.11-0.59); #Neutrophils 6.2 thou/uL (1.40-6.50); %Basophils 0.3 % (0.0-1.0); %Eosinophils 2.7 % (0.0-10.0); %Lymphocytes 14.2 % (21.0-51.0); %Monocytes 7.2 % (0.0-10.0); %Neutrophils 75.7 % (42.0-75.0); Mean Corpuscular HGB CONC 33.3 g/dL (32.0-36.0); Mean Corpuscular Hemoglobin 32.6 pg (27.0-31.0); Mean Corpuscular Volume 98.1 fL (78.0-98.0); Mean Platelet Volume 7.3 fL (7.4-10.4); Platelet Count 145 thou/uL (130-400); RBC Distribution Width 13.6 % (11.5-14.5); Red Blood Cell (RBC) Count 3.07 mill/uL (4.70-6.10); White Blood Cell (WBC) Count 8.2 thou/uL (4.8-10.8)
[2018-12-24 07:29] LABS: ALT (SGPT) 7 U/L (8-55); AST (SGOT) 20 U/L (5-34); Albumin 3.7 g/dL (3.4-4.8); Alkaline Phosphatase 56 U/L (40-150); Anion Gap 14 mmol/L (10-20); BUN (Urea Nitrogen) 20 mg/dL (8.4-25.7); Bilirubin, Total 0.4 mg/dL (0.2-1.2); Calc. Creatinine Clearance 77 mL/min (70-130); Calcium 9.4 mg/dL (7.8-10.44); Carbon Dioxide 28 mmol/L (23-31); Chloride 100 mmol/L (98-107); Estimated GFR-MDRD 49; Globulin 3.2 g/dL (2.4-3.5); Glucose 158 mg/dL (83-110); Magnesium 1.7 mg/dL (1.6-2.6); Potassium 3.6 mmol/L (3.5-5.1); Protein, Total 6.9 g/dL (5.8-8.1); Sodium 138 mmol/L (136-145)
[2018-12-24 07:57] VITALS: BP 134/74; TEMP 98
[2018-12-24] MEDS: tiZANidine HCl 4 MG TAB PO PRN (08:35)
[2018-12-24] MEDS: Losartan 25 MG TAB PO SCH (08:35)
[2018-12-24] MEDS: Hydrochlorothiazide 25 MG TAB PO SCH (08:37)
[2018-12-24] MEDS: Furosemide 80 MG TAB PO SCH (08:38)
[2018-12-24] MEDS: Gabapentin 300 MG CAP PO SCH (08:39)
[2018-12-24] MEDS: Allopurinol 300 MG TAB PO SCH (08:39)
[2018-12-24] MEDS: Insulin Glargine 22 UNITS in Pre-Filled Syringe 1 EACH SC SCH (11:25)
[2018-12-24] MEDS: Insulin Regular 300 UNITS/3 ML VIAL SC PRN (11:26)
--- NOTE | 2018-12-24 11:49 | PRG ---
DATE OF SERVICE: 12/24/2018 SUBJECTIVE: Mr. Smith is postoperative day 3 from C4-C6 ACDF. He is doing well. His ultrasound was negative for DVT. His drain has been removed. He feels "wonderful." We will plan for dismissal. Job ID: [id number]
== END 2018-12-24 13:35 | disposition home or self-care (01) ==
LOC: SDC 09:59 → SURG B 16:07
PROVIDERS: ADMIT Surgery; ATTEND Surgery
PROC: 0RG20A0 Fusion of 2 or more Cervical Vertebral Joints with Interbody Fusion Device, Anterior Approach, Anterior Column, Open Approach (ICD-10-PCS; principal; 2018-12-21)
PROC: 0RG2070 Fusion of 2 or more Cervical Vertebral Joints with Autologous Tissue Substitute, Anterior Approach, Anterior Column, Open Approach (ICD-10-PCS; 2018-12-21)
DX: M48.02 Spinal stenosis, cervical region (principal); I13.0 Hypertensive heart and chronic kidney disease with heart failure and stage 1 through stage 4 chronic kidney disease, or unspecified chronic kidney disease; E11.22 Type 2 diabetes mellitus with diabetic chronic kidney disease; N18.3 Chronic kidney disease, stage 3 (moderate); I50.30 Unspecified diastolic (congestive) heart failure; E11.319 Type 2 diabetes mellitus with unspecified diabetic retinopathy without macular edema; I25.10 Atherosclerotic heart disease of native coronary artery without angina pectoris; I35.0 Nonrheumatic aortic (valve) stenosis; E78.5 Hyperlipidemia, unspecified; E03.9 Hypothyroidism, unspecified; E66.01 Morbid (severe) obesity due to excess calories; Z68.37 Body mass index [BMI] 37.0-37.9, adult; M19.019 Primary osteoarthritis, unspecified shoulder; K21.9 Gastro-esophageal reflux disease without esophagitis; Z90.89 Acquired absence of other organs; Z90.79 Acquired absence of other genital organ(s); Z95.1 Presence of aortocoronary bypass graft; Z95.5 Presence of coronary angioplasty implant and graft; Z96.651 Presence of right artificial knee joint; Z98.52 Vasectomy status; Z87.442 Personal history of urinary calculi; Z98.84 Bariatric surgery status; Z88.8 Allergy status to other drugs, medicaments and biological substances; Z91.09 Other allergy status, other than to drugs and biological substances; Z91.041 Radiographic dye allergy status; Z79.82 Long term (current) use of aspirin; Z79.02 Long term (current) use of antithrombotics/antiplatelets; Z79.4 Long term (current) use of insulin; Z79.899 Other long term (current) drug therapy; Z98.890 Other specified postprocedural states
CPT/HCPCS: 20930; 20936; 22551; 22552; 22845; 22853 ×2; C1713; 36415; 36416; 76000; 80053; 83735; 85025; 96365; 96366; C1776; G0378; J1170; J1825; J2001; J2405; J2704; J3010; J3490

== ENCOUNTER 2018-12-25 14:34 | Inpatient (IN) | payer MEDICARE ==
[2018-12-25 15:39] LABS: #Lymphocytes 0.8 thou/uL (1.20-3.40); #Monocytes 0.7 thou/uL (0.11-0.59); #Neutrophils 9.1 thou/uL (1.40-6.50); %Basophils 0.1 % (0.0-1.0); %Eosinophils 0.3 % (0.0-10.0); %Lymphocytes 7.1 % (21.0-51.0); %Monocytes 6.9 % (0.0-10.0); %Neutrophils 85.6 % (42.0-75.0); Mean Corpuscular HGB CONC 32.7 g/dL (32.0-36.0); Mean Corpuscular Hemoglobin 32.4 pg (27.0-31.0); Mean Corpuscular Volume 99.3 fL (78.0-98.0); Mean Platelet Volume 6.9 fL (7.4-10.4); Platelet Count 178 thou/uL (130-400); RBC Distribution Width 13.5 % (11.5-14.5); Red Blood Cell (RBC) Count 3.38 mill/uL (4.70-6.10); White Blood Cell (WBC) Count 10.7 thou/uL (4.8-10.8)
--- NOTE | 2018-12-25 15:45 | RAD ---
PORTABLE CHEST: Date: 12/25/18 PROVIDED CLINICAL HISTORY: Sepsis. FINDINGS: Comparison with 01/13/10. The cardiac and mediastinal silhouette are unchanged in appearance. Median sternotomy changes are red emonstrated. No focal consolidation, pleural fluid, or pneumothorax apparent. Partially visualized radiodensity overlies the left upper quadrant medially, etiology and significanc e of which are uncertain. IMPRESSION: No definite evidence for an acute cardiopulmonary process. POS: [facility]
[2018-12-25 16:01] LABS: ALT (SGPT) 8 U/L (8-55); AST (SGOT) 21 U/L (5-34); Alkaline Phosphatase 60 U/L (40-150); Anion Gap 20 mmol/L (10-20); BUN (Urea Nitrogen) 28 mg/dL (8.4-25.7); Bilirubin, Total 0.4 mg/dL (0.2-1.2); CK (CPK) 202 U/L (30-200); Calc. Creatinine Clearance 0 mL/min (70-130); Calcium 9.7 mg/dL (7.8-10.44); Carbon Dioxide 22 mmol/L (23-31); Chloride 98 mmol/L (98-107); Estimated GFR-MDRD 42; Globulin 3.3 g/dL (2.4-3.5); Glucose 154 mg/dL (83-110); Potassium 4.2 mmol/L (3.5-5.1); Protein, Total 7.3 g/dL (5.8-8.1); Sodium 136 mmol/L (136-145)
[2018-12-25 16:44] LABS: Bilirubin Negative (Negative); Blood, Urine Negative (Negative); Clarity CLEAR (Clear); Glucose, Urine (Dipstick) Negative (Negative); Leukocyte Negative (Negative); Nitrite Negative (Negative); Protein, Urine (Dipstick) Negative (Neg-Trace); Specific Gravity, Urine 1.008 (1.002-1.036); Urobilinogen 0.2 mg/dL (0.2-1.0); pH, Urine 5.5 (5.0-9.0)
[2018-12-25] MEDS ORDERED: Aspirin Chewable 81 MG TAB ONE (17:34)
[2018-12-25 19:33] LABS: Critical Call Chem Troponin I RESULT DECREASING; Troponin I 1.173 ng/mL (< 0.028)
[2018-12-25] MEDS ORDERED: Guaifenesin DM 100-10/5 ML UDCUP PO PRN (19:50)
[2018-12-25] MEDS ORDERED: Dextrose 5% in Water 1,000 ML IV PRN (19:50)
[2018-12-25] MEDS ORDERED: HYDROcodone/Acetaminophen 5/325 mg Tablet PO PRN (19:50)
[2018-12-25] MEDS ORDERED: Acetaminophen 650 MG Suppository PR PRN (19:50)
[2018-12-25] MEDS ORDERED: Dextrose 50% Abboject 50 ML SYRINGE SLOW IVP PRN (19:50)
[2018-12-25] MEDS ORDERED: Ondansetron PF 4 MG/2 ML Vial IVP PRN (19:50)
[2018-12-25] MEDS ORDERED: Acetaminophen 325 MG TAB PO PRN (19:50)
[2018-12-25] MEDS ORDERED: Ondansetron ODT 4 MG TAB PO PRN (19:50)
[2018-12-25] MEDS ORDERED: Nitroglycerin 0.4 MG TAB (25 Tab Bottle) SL PRN (19:50)
[2018-12-25] MEDS ORDERED: Senokot S 8.6-50 MG TAB PO PRN (19:50)
[2018-12-25] MEDS ORDERED: HumaLOG 300 UNITS/3 ML VIAL SC PRN ×2 (19:50)
[2018-12-25] MEDS: Dutasteride 0.5 MG CAP PO SCH (20:35)
[2018-12-25] MEDS: Pravastatin Sodium 40 MG TAB PO SCH (20:35)
[2018-12-25] MEDS: Gabapentin 300 MG CAP PO SCH (20:36)
[2018-12-25] MEDS: Famotidine 20 MG TAB PO SCH (20:36)
[2018-12-25] MEDS: Insulin Glargine 22 UNITS in Pre-Filled Syringe SC SCH (20:39)
[2018-12-25] MEDS ORDERED: INSULIN GLARGINE HUM REC ANLOG SQ SCH (21:00)
[2018-12-25] MEDS ORDERED: [UNRECOGNIZED DRUG - OTHER] SQ SCH (21:00)
[2018-12-25 22:06] VITALS: BMI 36.0
[2018-12-25 22:36] LABS: Critical Call Chem Troponin I RESULT DECREASING
[2018-12-26] MEDS: HYDROcodone/Acetaminophen 5/325 mg Tablet PO PRN ×3 (01:13→22:56)
--- NOTE | 2018-12-26 01:49 | HP ---
PRIMARY CARE PHYSICIAN: Dr. Rizwana Rousseau at [facility]. REASON FOR ADMISSION: Non-ST elevation MS. HISTORY OF PRESENT ILLNESS: This is an 78-year-old white male, who was admitted on 12/21, last , for an anterior cervical diskectomy with fusion by Dr. Romano. The patient had some difficulty with swallowing, only able to eat mostly liquids. By the time of discharge, he had some chronic dysphagia, this worsened from the surgery. However, otherwise he was doing well. He was ambulating well with physical therapy and so, he was discharged home. At home, he did well yesterday and was ambulating. He did take couple of muscle relaxants before he when to sleep at night. This morning, he was unable to get out of bed. He had significant weakness in his legs. Even with assistance, he could not really stand up. Later, he was able to move into wheelchair and move himself down to the kitchen to eat. He has been weak all day, again is having difficulty with swallowing, also getting lot of the liquids that are going up into his nose, which is something he has chronic difficulties with and also he had some coughing and sputtering with trying to eat some soup earlier. Eventually, the patient came into the emergency room due to his weakness. In the ER, he was found to have an elevated troponin and so, he is being admitted for an NSTEMI. The patient did not have any chest pain or significant shortness of breath. He does have a little bit aching in his knees, but otherwise is without other complaint besides the rest of the HPI. PAST MEDICAL HISTORY: 1. Diabetes mellitus, type 2, insulin dependent complicated by stage 3 chronic kidney disease and diabetic retinopathy. 2. Coronary artery disease with previous CABG and further stenting. 3. Diastolic congestive heart failure. 4. Dyslipidemia. 5. Morbid obesity. 6. Gastroesophageal reflux disease. 7. Mild aortic stenosis. 8. Remote nephrolithiasis. 9. Hypertension. 10. Arthritis and rotator cuff injury of the shoulder. 11. Chronic low back pain. PAST SURGICAL HISTORY: 1. Coronary artery bypass grafting in 2006. 2. Cataract surgery in 2005. 3. Tonsillectomy in 1954. 4. Vasectomy in 1962. 5. Patellar fracture surgery in 1957. 6. Hemorrhoid surgery in 1975. 7. Ureteroscopy, multiple times. 8. Lumbar spinal surgery in 1998. 9. Transurethral resection of the prostate in 1995. 10. Bilateral foot surgery in 2011. 11. Laparoscopic gastric banding in 2009. 12. Thyroidectomy in 2009. 13. Right total knee replacement in 2005. SOCIAL HISTORY: The patient has no significant smoking history. No alcohol or illicit drugs. He lives at home with his , who is present at the bedside and he states actually his daughter would be his medical decisionmaker. She is also present at the bedside, name is Chastity Alva. The patient is a do not attempt to resuscitate. FAMILY HISTORY: Cancer in his brother, father, and sister. ALLERGIES: 1. JAME INHIBITORS. 2. ADHESIVE TAPE. 3. IODINATED CONTRAST. 4. SILDENAFIL. CURRENT MEDICATIONS: 1. Aspirin 81 mg daily. This was restarted this morning. It is the only thing that Neurosurgery is allowing him to take for blood thinners right now. 2. Plavix 75 mg daily. This is on hold for another week. 3. Colace as needed. 4. Hydrocodone/acetaminophen as needed. 5. Resveratrol 100 mg daily. 6. Allopurinol 300 mg daily. 7. Dutasteride 0.5 mg at night. 8. Furosemide 160 mg each morning. 9. Gabapentin 300 mg 3 times a day. 10. Hydrochlorothiazide 12.5 mg each morning. 11. NovoLog 15 units before each meal. 12. Basaglar KwikPen 22 units twice a day. 13. Levothyroxine 200 mcg each morning. 14. Losartan 100 mg each morning. 15. Metoprolol-XL 50 mg at night. 16. Nitroglycerin as needed. 17. Omeprazole 40 mg twice a day. 18. Pravastatin 40 mg at night. REVIEW OF SYSTEMS: CONSTITUTIONAL: No fevers. The patient did have some chills this morning. EYES: No double vision or blurred vision. ENT: No congestion, drainage, or sore throat. He does have the dysphagia as above. CARDIOVASCULAR: No chest pain. No palpitations or racing heart. PULMONARY: No coughing, wheezing, or shortness of breath. GASTROINTESTINAL: No abdominal pain. No nausea or vomiting. No diarrhea. He has not had any bowel movements since a large one right before his surgery. GENITOURINARY: No dysuria or hematuria. MUSCULOSKELETAL: The patient has chronic muscle aches and joint pains, but nothing more than normal besides his knees aching a little bit since trying to stand up this morning. SKIN: No rashes or lesions noted. NEUROLOGIC: No numbness, tingling, or focal weakness. DIAGNOSTIC STUDIES: LABORATORY RESULTS: CBC with white blood cell count at 10.7, hemoglobin 11.0, hematocrit 33.5, and platelet count 178. Complete metabolic panel is notable for carbon dioxide of 22; BUN of 28; creatinine of 1.6, which is elevated beyond 1.4 that he had even just yesterday; and glucose is 154. Creatine kinase is 202. The rest was normal. His lactic acid was negative at 1.7. His troponin was 1.29. Urinalysis was negative for infection. IMAGING STUDIES: Chest x-ray, I did review the chest x-ray done in the emergency room along with the radiologist's report and shows his previous median sternotomy, but no evidence of focal consolidation, no pleural fluid, no cardiomegaly, no acute cardiopulmonary process visualized. CARDIOVASCULAR STUDIES: EKG; the patient's EKG in the emergency room did show sinus rhythm with a complete right bundle branch block and the left anterior fascicular block similar to old EKG from last month. ASSESSMENT: 1. Non-ST elevation myocardial infarction. The patient has known coronary artery disease, though he was cleared by his automotive tire worker to get his surgery last week. He is now having a bump in his troponins. The patient has resumed his 81 mg of aspirin and that is all that Neurosurgery is allowing us to use for anticoagulants right now. Dr. Calix has been consulted. We will monitor the patient closely in the hospital, and we will trend his troponins. 2. Lower extremity weakness. This may be multifactorial including the non-ST segment elevation myocardial infarction and the muscle relaxants he took last night. We will hold off on further muscle relaxants for now, and we will have Physical Therapy work with the patient. 3. Dysphagia, worsened since surgery. We will have Speech Therapy evaluate the patient and make certain he is safe to swallow. 4. Diabetes mellitus, type 2. We will resume the patient's insulin and give diabetic diet and insulin sliding scale as needed. 5. Hypertension. We will resume the patient's home medications. 6. Diastolic congestive heart failure, not currently in exacerbation. We will resume the patient's Lasix for now, though we will keep a close eye on his creatinine and his fluid intake and in's and out's. 7. Gastrointestinal prophylaxis. We will continue the patient's proton pump inhibitor. 8. Deep venous thrombosis prophylaxis. We will put SCDs, when the patient lies in bed. CODE STATUS: I did discuss with the patient and confirmed that he is a do not attempt resuscitation. His medical decision maker is his daughter, Chastity Alva. Job ID: [id number] MTDD
[2018-12-26 06:07] LABS: #Eosinphils 0.1 thou/uL (0.0-0.7); #Monocytes 0.6 thou/uL (0.11-0.59); #Neutrophils 4.5 thou/uL (1.40-6.50); %Basophils 0.2 % (0.0-1.0); %Eosinophils 2.1 % (0.0-10.0); %Monocytes 8.8 % (0.0-10.0); %Neutrophils 72.9 % (42.0-75.0); Hemoglobin 10.1 g/dL (14.0-18.0); Mean Corpuscular HGB CONC 33.7 g/dL (32.0-36.0); Mean Corpuscular Hemoglobin 32.8 pg (27.0-31.0); Mean Corpuscular Volume 97.6 fL (78.0-98.0); Platelet Count 165 thou/uL (130-400); RBC Distribution Width 13.6 % (11.5-14.5); Red Blood Cell (RBC) Count 3.07 mill/uL (4.70-6.10); White Blood Cell (WBC) Count 6.2 thou/uL (4.8-10.8)
[2018-12-26] MEDS: Levothyroxine Sodium 100 MCG TAB PO SCH (06:07)
[2018-12-26 06:30] LABS: Anion Gap 15 mmol/L (10-20); BUN (Urea Nitrogen) 31 mg/dL (8.4-25.7); Calc. Creatinine Clearance 63 mL/min (70-130); Calcium 9.7 mg/dL (7.8-10.44); Carbon Dioxide 27 mmol/L (23-31); Chloride 97 mmol/L (98-107); Estimated GFR-MDRD 41; Glucose 193 mg/dL (83-110); Potassium 3.4 mmol/L (3.5-5.1); Sodium 136 mmol/L (136-145)
[2018-12-26] MEDS: HumaLOG 300 UNITS/3 ML VIAL SC SCH ×3 (09:15→17:05)
[2018-12-26] MEDS: Insulin Glargine 22 UNITS in Pre-Filled Syringe SC SCH ×2 (09:17→21:15)
[2018-12-26] MEDS: Famotidine 20 MG TAB PO SCH ×2 (09:19→21:14)
[2018-12-26] MEDS: Gabapentin 300 MG CAP PO SCH ×3 (09:19→21:14)
[2018-12-26] MEDS: Aspirin 81 mg Enteric Coated Tablet PO SCH (09:19)
[2018-12-26] MEDS: Hydrochlorothiazide 25 MG TAB PO SCH (09:19)
[2018-12-26] MEDS: Furosemide 80 MG TAB PO SCH (09:19)
[2018-12-26] MEDS: Allopurinol 300 MG TAB PO SCH (09:19)
[2018-12-26] MEDS: Losartan 25 MG TAB PO SCH (09:20)
[2018-12-26] MEDS: Polyethylene Glycol 3350 17 GM Packet PO SCH (09:21)
--- NOTE | 2018-12-26 17:49 | PDOC.PN ---
- Subjective Encounter Start Date: 12/26/18 Encounter Start Time: 17:35 Subjective: f/u for NSTEMI after recent ACDF. Receiving ASA as anticoagulation -: contraindicated due to the recent procedure. Feels ok overall. - Objective Resuscitation Status - Order Detail: 12/25/18 19:02 Resuscitation Status Routine Resuscitation Status: DNAR: NO Resuscitation Discussed with: Patient and his daughter ISAEL Reviewed: Yes Vital Signs & Weight: Vital Signs (12 hours) Temp Pulse Pulse Pulse Resp BP BP 12/26/18 16:18 99.3 F 105 H 21 H 12/26/18 14:16 94 99 118/57 L 124/83 12/26/18 11:43 97.8 F 82 21 H 12/26/18 10:07 92 135/63 12/26/18 09:10 97.9 F 85 19 BP Pulse Ox 12/26/18 16:18 129/60 98 12/26/18 14:16 12/26/18 11:43 130/60 93 L 12/26/18 10:07 12/26/18 09:10 139/62 97 Weight Weight 271 lb Result Diagrams: 12/26/18 05:10 12/26/18 05:10 Additional Labs: Accuchecks 12/26/18 12/26/18 12/26/18 16:44 10:47 05:15 POC Glucose 135 H 219 H 200 H 12/25/18 20:10 POC Glucose 181 H Microbiology 12/25/18 16:30 Urine clean catch Urine Culture - Preliminary NO GROWTH AT 12 HOURS 12/25/18 15:30 Venous blood - Right Hand Blood Culture - Preliminary Specimen has been received and culture in progress. No Growth to date. 12/25/18 15:30 Venous blood - Left Hand Blood Culture - Preliminary Specimen has been received and culture in progress. No Growth to date. Laboratory Tests 12/25/18 12/25/18 12/25/18 15:30 15:30 18:54 Hgb 11.0 L Troponin I 1.290 H* 1.173 H* 12/25/18 22:05 Hgb Troponin I 1.010 H* Radiology Reviewed by me: Yes (PCXR - no acute process) EKG Reviewed by me: Yes (Tele - SR) Phys Exam - Physical Examination Constitutional: NAD HEENT: PERRLA, sclera anicteric, oral pharynx no lesions Neck: no nodes, no JVD, supple, full ROM Respiratory: no wheezing, no rales, no rhonchi, clear to auscultation bilateral S1, S2 Cardiovascular: RRR, no significant murmur, no rub, gallop obese Gastrointestinal: soft, non-tender, no distention, positive bowel sounds Musculoskeletal: no edema, pulses present Neurological: normal sensation, moves all 4 limbs Psychiatric: A&O x 3 Skin: normal turgor, cap refill <2 seconds Dx/Plan (1) NSTEMI (non-ST elevated myocardial infarction) Code(s): I21.4 - NON-ST ELEVATION (NSTEMI) MYOCARDIAL INFARCTION Status: Acute Comment: Medical mgmt, ASA 81mg daily, 2D echo, no anticoagulation due to recent cervical spine surgery (2) CAD (coronary artery disease) Code(s): I25.10 - ATHSCL HEART DISEASE OF [place] CORONARY ARTERY W/O ANG PCTRS Status: Chronic Comment: See above, likely will need LHC in 2 weeks (3) Polypharmacy Code(s): Z79.899 - OTHER LOBSTER CATCHER (CURRENT) DRUG THERAPY Status: Acute Comment: Suspect contributing to lower extremity weakness, hold Flexeril and limit sedating medications (4) Dysphagia Code(s): R13.10 - DYSPHAGIA, UNSPECIFIED Status: Acute Qualifiers: Dysphagia type: oropharyngeal phase Qualified Code(s): R13.12 - Dysphagia, oropharyngeal phase Comment: Secondary to recent ACDF, modified diet per HE[employer]COMES LIAISON recommendations - Plan plan discussed w/ family, PT/OT, social worker psychiatric, out of bed/ambulate, DVT proph w/SCDs stable currently -: Continue ASA 81mg daily -: Continue Losartan -: Continue Pravachol -: 2D echo pending * AM lab: BMP
--- NOTE | 2018-12-26 20:49 | PRG ---
DATE OF SERVICE: 12/26/2018 DICTATING FOR: Lobito Romano MD Mr. Smith is readmitted for an elevated troponin and concern of non-STEMI. He is third day postop from ACDF. He has difficulty swallowing, but otherwise actually is moving much better than he was even this weekend. He has good strength in the arms and legs. He is sitting up by himself on the edge of the bed attempting to use the urinal. He does have some hoarseness, but otherwise appears stable from neurosurgical standpoint. He may be on 81 mg aspirin at this time. We will have to discuss possibility of adding Plavix stat to his regimen, although at this time, it is too close postoperatively to do itself. Please call with any changes in the patient's neurologic status. Job ID: [id number]
[2018-12-26] MEDS: Pravastatin Sodium 40 MG TAB PO SCH (21:14)
[2018-12-26] MEDS: Dutasteride 0.5 MG CAP PO SCH (21:14)
[2018-12-27 05:20] LABS: Anion Gap 14 mmol/L (10-20); BUN (Urea Nitrogen) 38 mg/dL (8.4-25.7); Calc. Creatinine Clearance 51 mL/min (70-130); Calcium 9.6 mg/dL (7.8-10.44); Carbon Dioxide 29 mmol/L (23-31); Chloride 97 mmol/L (98-107); Estimated GFR-MDRD 32; Glucose 195 mg/dL (83-110); Potassium 3.4 mmol/L (3.5-5.1); Sodium 137 mmol/L (136-145)
[2018-12-27] MEDS: Levothyroxine Sodium 100 MCG TAB PO SCH (06:12)
[2018-12-27] MEDS: HYDROcodone/Acetaminophen 5/325 mg Tablet PO PRN ×2 (06:17→20:36)
--- NOTE | 2018-12-27 07:08 | CON ---
DATE OF CONSULTATION: REASON FOR CONSULTATION: Elevated troponin. HISTORY OF PRESENT ILLNESS: Mr. Smith is a very pleasant 78-year-old gentleman. He had a previous history of CAD, status post bypass surgery and stent placement. He is the patient of Dr. Robert Torres. He recently presented with weakness and fatigue. No chest pain or pressure noted. He states his last episode of chest pain was 3 to 4 weeks ago. He was seen and evaluated by Dr. Robert Torres and was cleared for laminectomy. This was successful last week. He presented with the above. His troponin was elevated. He continues to have weakness and fatigue. Again, no current symptoms suggesting angina. PAST MEDICAL HISTORY: 1. Diabetes mellitus. 2. CAD, status bypass surgery. 3. Diastolic dysfunction. 4. Hyperlipidemia. 5. Nephrolithiasis. 6. Hypertension. 7. Mild aortic stenosis. 8. Low back pain. 9. CABG in 2006 and status post stent placement in 2017. 10. Cataract surgery. 11. Tonsillectomy. 12. Vasectomy. 13. Hemorrhoid surgery. 14. TURP. 15. Foot surgery. 16. Thyroidectomy. 17. Knee surgery. SOCIAL HISTORY: No current tobacco or alcohol use. ALLERGIES: IODINE, ADHESIVE TAPE, JAME INHIBITORS. HOME MEDICATIONS: 1. Aspirin. 2. Plavix. 3. Colace. 4. Hydrocodone. 5. Allopurinol. 6. Lasix. 7. Gabapentin. 8. Hydrochlorothiazide. 9. NovoLog. 10. Levothyroxine. 11. Losartan. 12. Metoprolol. 13. Nitroglycerin. 14. Omeprazole. 15. Pravastatin. REVIEW OF SYSTEMS: A 10-point review of systems is reviewed as above, otherwise negative. PHYSICAL EXAMINATION: VITAL SIGNS: Blood pressure 129/60, pulse 82, respirations 20. GENERAL: The patient is a pleasant 78-year-old male, who is in no acute distress. The patient appears their stated age. NEUROLOGIC: The patient is alert and oriented x3 with no focal neurologic deficits. HEENT: Sclerae without icterus. Mouth has moist mucous membranes with normal pallor. NECK: No JVD. Carotid upstroke brisk. No bruits bilaterally. LUNGS: Clear to auscultation with unlabored respirations. BACK: No scoliosis or kyphosis. CARDIAC: Regular rate and rhythm with normal S1 and S2. No S3 or S4 noted. No significant rubs, murmurs, thrills, or gallops noted throughout the precordium. PMI is not displaced. There is no parasternal heave. ABDOMEN: Soft, nontender, nondistended. No peritoneal signs present. No hepatosplenomegaly. No abnormal striae. EXTREMITIES: 2+ femoral and 2+ dorsalis pedis pulses. No cyanosis, clubbing, or edema. SKIN: No gross abnormalities. PERTINENT LABORATORY DATA: Hemoglobin 10.1. Creatinine 1.62, GFR 41. Peak troponin 1.0. IMPRESSION: 1. Elevated troponin. 2. Weakness. 3. Coronary artery disease, status post bypass surgery. RECOMMENDATIONS: Mr. Smith' elevated troponin is likely myocardial infarction type II. He has no current symptoms suggesting angina. No acute changes present. His CK-MB is normal. This may have occurred last week. At this point, given recent laminectomy, we would recommend conservative therapy. He agrees. We will avoid anticoagulants. May consider aspirin and Plavix, but will be at the discretion of Dr. Romano. We will discuss in the a.m. Job ID: [id number]
[2018-12-27] MEDS: Furosemide 80 MG TAB PO SCH (08:42)
[2018-12-27] MEDS: Famotidine 20 MG TAB PO SCH ×2 (08:42→20:36)
[2018-12-27] MEDS: Gabapentin 300 MG CAP PO SCH ×3 (08:42→20:36)
[2018-12-27] MEDS: Allopurinol 300 MG TAB PO SCH (08:42)
[2018-12-27] MEDS: Aspirin 81 mg Enteric Coated Tablet PO SCH (08:42)
[2018-12-27] MEDS: HumaLOG 300 UNITS/3 ML VIAL SC SCH ×3 (08:42→18:24)
[2018-12-27] MEDS: Hydrochlorothiazide 25 MG TAB PO SCH (08:43)
[2018-12-27] MEDS: Polyethylene Glycol 3350 17 GM Packet PO SCH (08:44)
[2018-12-27] MEDS: Losartan 25 MG TAB PO SCH (08:44)
[2018-12-27] MEDS: Insulin Glargine 22 UNITS in Pre-Filled Syringe SC SCH ×2 (08:44→20:36)
--- NOTE | 2018-12-27 09:49 | PRG ---
DATE OF SERVICE: 12/27/2018 Mr. Smith is just under a week out from his ACDF. He has done well in regard to cervical myelopathy and radiculopathy. Unfortunately, there was concern of an NSTEMI in the postoperative period. He has been initiated on baby aspirin. He normally takes aspirin and Plavix. It is a bit early to incorporate both antiplatelet medications at this time, and as such, I would be in favor of continuing the aspirin until January 01, and then we can add Plavix to that. I discussed his care with Dr. Silva as well. Job ID: [id number]
--- NOTE | 2018-12-27 18:55 | CON ---
DATE OF CONSULTATION: SUBJECTIVE: Mr. Smith is doing well. No current complaints. He continues to complain weakness, although improved. OBJECTIVE: VITAL SIGNS: Blood pressure 112/54, pulse 94, temperature 97.6. LUNGS: Clear to auscultation. HEART: Regular rate and rhythm. ABDOMEN: Soft, nontender, nondistended. EXTREMITIES: No edema. IMPRESSION: 1. Elevated troponin. 2. Weakness. 3. Recent laminectomy. RECOMMENDATIONS: I had a long discussion today with Dr. Lobito Romano. There is some reluctancy to proceed with aspirin and Plavix given risk of a retropharyngeal hematoma. At this point, Mr. Smith appears stable. His EKG appears stable. He has no current symptoms suggesting unstable angina. I would recommend a more conservative approach. At this point, we will continue with metoprolol in addition to low-dose aspirin and a statin therapy. From my standpoint, I have no further recommendations. I did state to Mr. Smith, the plan will be for him to follow up with Dr. Robert Torres, his primary marine engineering technicians at [facility]. From my standpoint, can discharge tele and can transfer to a surgical if he is going to stay in the hospital any further. Job ID: [id number]
--- NOTE | 2018-12-27 19:19 | PDOC.PN ---
- Subjective Encounter Start Date: 12/27/18 Encounter Start Time: 19:00 Subjective: f/u for NSTEMI medically managed s/p ACDF x 1 week. Feels better -: overall and ambulating short distances. Mentally clearer today. - Objective Resuscitation Status - Order Detail: 12/25/18 19:02 Resuscitation Status Routine Resuscitation Status: DNAR: NO Resuscitation Discussed with: Patient and his daughter ISAEL Reviewed: Yes Vital Signs & Weight: Vital Signs (12 hours) Temp Pulse Resp BP Pulse Ox 12/27/18 15:32 97.6 F 94 18 112/54 L 94 L 12/27/18 12:08 98.7 F 80 18 129/58 L 92 L Weight Weight 271 lb I&O: 12/26/18 12/27/18 12/28/18 06:59 06:59 06:59 Intake Total 390 960 Output Total 400 Balance -10 960 Result Diagrams: 12/26/18 05:10 12/27/18 04:33 Additional Labs: Accuchecks 12/27/18 12/27/18 12/27/18 17:08 11:20 05:48 POC Glucose 215 H 162 H 219 H 12/26/18 19:58 POC Glucose 218 H Microbiology 12/25/18 16:30 Urine clean catch Urine Culture - Final NO GROWTH AT 36 HOURS 12/25/18 16:30 Urine clean catch Urine Culture - Preliminary NO GROWTH AT 12 HOURS 12/25/18 15:30 Venous blood - Right Hand Blood Culture - Preliminary Specimen has been received and culture in progress. No Growth to date. 12/25/18 15:30 Venous blood - Right Hand Blood Culture - Preliminary NO GROWTH AT 48 HOURS 12/25/18 15:30 Venous blood - Left Hand Blood Culture - Preliminary Specimen has been received and culture in progress. No Growth to date. 12/25/18 15:30 Venous blood - Left Hand Blood Culture - Preliminary NO GROWTH AT 48 HOURS Laboratory Tests 12/25/18 12/25/18 12/25/18 15:30 15:30 15:30 Hgb 11.0 L Neutrophils % 85.6 H Creatinine 1.60 H Troponin I 1.290 H* 12/25/18 12/25/18 12/26/18 18:54 22:05 05:10 Hgb Neutrophils % Creatinine 1.62 H Troponin I 1.173 H* 1.010 H* EKG Reviewed by me: Yes (Tele - SR) Phys Exam - Physical Examination Constitutional: NAD HEENT: PERRLA, sclera anicteric, oral pharynx no lesions Neck: no nodes, no JVD, supple, full ROM Respiratory: no wheezing, no rales, no rhonchi, clear to auscultation bilateral S1, S2 Cardiovascular: RRR, no significant murmur, no rub, gallop Gastrointestinal: soft, non-tender, no distention, positive bowel sounds Musculoskeletal: no edema, pulses present Neurological: normal sensation, moves all 4 limbs Psychiatric: A&O x 3 Skin: normal turgor, cap refill <2 seconds Dx/Plan (1) NSTEMI (non-ST elevated myocardial infarction) Code(s): I21.4 - NON-ST ELEVATION (NSTEMI) MYOCARDIAL INFARCTION Status: Acute Comment: Medical mgmt, ASA 81mg daily, 2D echo EF 55%, no anticoagulation due to recent cervical spine surgery with recommendations to resume ASA/Plavix on 01/01/19 (2) CAD (coronary artery disease) Code(s): I25.10 - ATHSCL HEART DISEASE OF [place] CORONARY ARTERY W/O ANG PCTRS Status: Chronic Comment: See above, stable currently, potential [facility] in near future (3) Polypharmacy Code(s): Z79.899 - OTHER ASSISTED (CURRENT) DRUG THERAPY Status: Acute Comment: Suspect contributing to lower extremity weakness, hold Flexeril and limit sedating medications (4) Dysphagia Code(s): R13.10 - DYSPHAGIA, UNSPECIFIED Status: Acute Qualifiers: Dysphagia type: oropharyngeal phase Qualified Code(s): R13.12 - Dysphagia, oropharyngeal phase Comment: Secondary to recent ACDF, modified diet per MI[employer]ATEGY BI DEVELOPER recommendations - Plan plan discussed w/ family, PT/OT, social research assistant, speech therapy, out of bed/ ambulate, DVT proph w/SCDs Stable overall -: Continue ASA 81mg daily -: Continue Pravachol -: Limit sedating medications -: OOB with PT * AM lab: BMP * Likely home with 12/27/18
[2018-12-27] MEDS: Dutasteride 0.5 MG CAP PO SCH (20:36)
[2018-12-27] MEDS: Pravastatin Sodium 40 MG TAB PO SCH (20:36)
[2018-12-28] MEDS: HYDROcodone/Acetaminophen 5/325 mg Tablet PO PRN (02:33)
[2018-12-28 05:09] VITALS: TEMP 97.9
[2018-12-28] MEDS: Levothyroxine Sodium 100 MCG TAB PO SCH (05:53)
[2018-12-28 06:57] LABS: Anion Gap 16 mmol/L (10-20); BUN (Urea Nitrogen) 40 mg/dL (8.4-25.7); Calc. Creatinine Clearance 49 mL/min (70-130); Calcium 9.7 mg/dL (7.8-10.44); Carbon Dioxide 29 mmol/L (23-31); Chloride 97 mmol/L (98-107); Estimated GFR-MDRD 31; Glucose 202 mg/dL (83-110); Potassium 3.7 mmol/L (3.5-5.1); Sodium 138 mmol/L (136-145)
--- NOTE | 2018-12-28 10:04 | PDOC.EVN ---
Event Note - Event Note Event Note: DC SUMMARY #[id number]
--- NOTE | 2018-12-28 10:37 | DIS ---
DATE OF ADMISSION: 12/25/2018 DATE OF DISCHARGE: 12/28/2018 ADMITTING DIAGNOSES: 1. Wrx-BQ-odertrhfb myocardial infarction. 2. History of diabetes mellitus. 3. History of coronary artery disease. 4. History of dyslipidemia. 5. History of morbid obesity. 6. History of gastroesophageal reflux disease. 7. History of recent neck surgery. 8. History of stable diastolic congestive heart failure. DISCHARGE DIAGNOSES: 1. Pwv-WJ-ryrhdwlok myocardial infarction, stable. 2. Diabetes mellitus type 2. 3. Stable coronary artery disease. 4. Stable diastolic dysfunction. 5. Congestive heart failure, stable. 6. Dyslipidemia, stable. 7. Morbid obesity, stable. 8. Gastroesophageal reflux disease, stable. 9. Hypertension, stable. HOSPITAL COURSE: An 78-year-old male, who was admitted to the hospital having recently had a cervical spine diskectomy and fusion by one of the local neurosurgeons, admitted for NSTEMI. The patient was seen by a Neurosurgery and Cardiology. Discussion was made over length about medical management. The patient was not to have dual antiplatelets for neurosurgery. Advised to hold for a few more days because of concern of retropharyngeal bleeding. The patient was advised to continue aspirin for four days post discharge from the hospital and then add Plavix at that point in time. The patient was advised to follow up with his outpatient primary care physician in 3 to 5 days, as well as neurosurgeon within 3 to [address] Torres, his police communications dispatcher at [facility] within 3 to 5 days. The patient at the point in time of discharge was cleared by Neurosurgery, Cardiology, and Internal Medicine. ACTIVITY: As tolerated with assistance as needed. FOLLOWUP: Follow up with PCP, Cardio, and Neurosurgery within 3 to 5 days. DIET: Low-fat low-calorie high-fiber diet. CONDITION: Stable. PROGNOSIS: Good. MEDICATIONS: See Mar. Case and plan discussed with the patient and at length. They understood and agreed with this plan. Job ID: [id number]
[2018-12-28] MEDS: HumaLOG 300 UNITS/3 ML VIAL SC SCH (10:40)
[2018-12-28] MEDS: Insulin Glargine 22 UNITS in Pre-Filled Syringe SC SCH (10:40)
[2018-12-28] MEDS: Aspirin 81 mg Enteric Coated Tablet PO SCH (10:43)
[2018-12-28] MEDS: Famotidine 20 MG TAB PO SCH (10:43)
[2018-12-28] MEDS: Allopurinol 300 MG TAB PO SCH (10:43)
[2018-12-28] MEDS: Hydrochlorothiazide 25 MG TAB PO SCH (10:44)
[2018-12-28] MEDS: Furosemide 80 MG TAB PO SCH (10:44)
[2018-12-28] MEDS: Gabapentin 300 MG CAP PO SCH (10:44)
[2018-12-28] MEDS: Losartan 25 MG TAB PO SCH (10:45)
[2018-12-28] MEDS: Polyethylene Glycol 3350 17 GM Packet PO SCH (10:45)
[2018-12-28 13:30] VITALS: BP 141/62
--- NOTE | 2018-12-28 15:52 | PRG ---
DATE OF SERVICE: 12/28/2018 DICTATED FOR: Lobito Romano MD Mr. Smith is status post ACDF, now with hospital day #5, having sustained a non-STEMI earlier this week. Dr. Romano has discussed the patient's case with Dr. Silva, and he remains on 81 mg aspirin, but will be cleared to resume his Plavix on 01/01/2019, which is Tuesday. The patient notes improvement overall in his neck and arm symptoms. He has been somewhat mobile. He remains with good strength in the bilateral upper and bilateral lower extremities, although may have functional weakness into the legs with walking. His incision is covered with a dressing and this is clean and dry. He has his [place] J collar off at this time. Neurosurgery will sign off on the patient's case. However, please call with any changes in patient's neurologic status, questions. Again, he will be safe to resume Plavix on 01/01/2019. He may continue 81 mg aspirin at this time as well. Please keep him on a soft diet. Job ID: [id number]
== END 2018-12-28 15:40 | disposition home health service (06) | DRG 281 ==
LOC: ERS 14:34 → 2NO 17:54
PROVIDERS: ADMIT Emergency Medicine; ATTEND Emergency Medicine
DX: I21.4 Non-ST elevation (NSTEMI) myocardial infarction (principal); I50.30 Unspecified diastolic (congestive) heart failure; I13.0 Hypertensive heart and chronic kidney disease with heart failure and stage 1 through stage 4 chronic kidney disease, or unspecified chronic kidney disease; E11.22 Type 2 diabetes mellitus with diabetic chronic kidney disease; E11.319 Type 2 diabetes mellitus with unspecified diabetic retinopathy without macular edema; N18.3 Chronic kidney disease, stage 3 (moderate); I25.10 Atherosclerotic heart disease of native coronary artery without angina pectoris; E78.5 Hyperlipidemia, unspecified; E66.01 Morbid (severe) obesity due to excess calories; K21.9 Gastro-esophageal reflux disease without esophagitis; I35.0 Nonrheumatic aortic (valve) stenosis; G89.29 Other chronic pain; M54.5 Low back pain; R13.12 Dysphagia, oropharyngeal phase; Z96.651 Presence of right artificial knee joint; Z98.49 Cataract extraction status, unspecified eye; Z95.1 Presence of aortocoronary bypass graft; Z90.89 Acquired absence of other organs; Z98.890 Other specified postprocedural states; Z90.79 Acquired absence of other genital organ(s); Z88.5 Allergy status to narcotic agent; Z91.041 Radiographic dye allergy status; Z79.82 Long term (current) use of aspirin; Z79.02 Long term (current) use of antithrombotics/antiplatelets; Z79.4 Long term (current) use of insulin
CPT/HCPCS: 36415; 36416; 71045; 76000; 80048; 80053; 81003; 82550; 82553; 83605; 83735; 84484; 85025; 87040; 87086; 93005; 93306; 96365; 96366; C1713; C1776; G0378; J1170; J1825; J2001; J2405; J2704; J3010; J3490

== ENCOUNTER 2019-02-14 08:30 | Outpatient (CLI) | payer MEDICARE ==
--- NOTE | 2019-02-14 09:15 | RAD ---
CERVICAL SPINE: Indications: Cervical radiculopathy. Follow up surgery. Comparison: 10-31-17 FINDINGS: Operative changes are noted since prior study. Anterior plate and screws now seen transfixing C4, C5, and C6 with interbody implants at these levels. The anterior compression of the C4, C5, and C6 verte bra appear stable from prior exam. Large anterior bridging osteophyte at C3-4 is again noted. Posteri or alignment is maintained. IMPRESSION: Degenerative and post-operative changes of the cervical spine noted as described. POS: [facility]
== END 2019-02-14 08:31 | disposition home or self-care (01) ==
LOC: TBSIIMAG 08:30
PROVIDERS: ATTEND Surgery
DX: S16.1XXA Strain of muscle, fascia and tendon at neck level, initial encounter (principal); M50.10 Cervical disc disorder with radiculopathy, unspecified cervical region; M47.22 Other spondylosis with radiculopathy, cervical region; Z98.890 Other specified postprocedural states
CPT/HCPCS: 72040